=== PATIENT | female | born 1960 | race African-American/Black ===

== ENCOUNTER 2022-05-03 14:37 | Observation (INO) | payer OTHER ==
[2022-05-03 16:42] LABS: BASO % 0.5 % (0-2.0); EOS % 0.6 % (0-4.5); HEMATOCRIT 40.2 % (32.4-45.2); HEMOGLOBIN 13.3 GM/dL (10.7-15.3); LYMPH % 8.8 % (8-40); MCH 27.9 pg (25.7-33.7); MEAN CELL VOLUME 84.4 fl (80-96); MEAN PLT VOLUME 7.3 fl (7.5-11.1); MONO % 4.6 % (3.8-10.2); NEUT % 85.5 % (42.8-82.8); PLATELET COUNT 528 10^3/uL (134-434); RBC 4.76 M/mm3 (3.60-5.2); RDW 14.7 % (11.6-15.6); WHITE BLOOD COUNT 11.8 K/mm3 (4.0-10.0)
[2022-05-03 16:57] LABS: INR 1.03 (0.83-1.09); PROTHROMBIN TIME (PATIENT) 11.9 SEC (9.7-13.0)
[2022-05-03 16:59] LABS: CALCIUM 10.1 mg/dL (8.5-10.1)
[2022-05-03 17:00] LABS: ACTIVATED PTT 31.8 SECONDS (25.2-36.5)
[2022-05-03 17:01] LABS: ALBUMIN 4.1 g/dl (3.4-5.0)
[2022-05-03 17:03] LABS: CREATININE 0.7 mg/dL (0.55-1.3)
[2022-05-03 17:04] LABS: BILIRUBIN,TOTAL 0.9 mg/dL (0.2-1)
[2022-05-03 17:06] LABS: TOT PROT 7.8 g/dl (6.4-8.2)
[2022-05-03] MEDS ORDERED: LACTATED RINGERS SOLUTION 1000 ML INFUS.BAG IV ONE (17:14)
[2022-05-03] MEDS ORDERED: SODIUM CHLORIDE 0.9% 500 ML INFUS.BAG IV ONE (17:14)
[2022-05-03 23:56] VITALS: BMI 20.5
[2022-05-04] MEDS ORDERED: DEXTROSE 5%-LACTATED RINGERS 1,000 ML IV SCH (02:30)
[2022-05-04 06:29] LABS: EPI CELLS 8 /uL (0-25.1); HYALINE CASTS 0 /uL (0-3.1); URINE APPEARANCE CLEAR; URINE BACTERIA 12 /uL (0-1359); URINE BILIRUBIN NEGATIVE (NEGATIVE); URINE COLOR YELLOW; URINE GLUCOSE (UA) NEGATIVE (NEGATIVE); URINE KETONE TRACE (NEGATIVE); URINE LEUK ESTERASE TRACE (NEGATIVE); URINE NITRITE NEGATIVE (NEGATIVE); URINE PROTEIN NEGATIVE (NEGATIVE); URINE RBC 6 /uL (0-23.9); URINE WBC 11 /uL (0-25.8)
[2022-05-04] MEDS ORDERED: ACETAMINOPHEN 1000 MG/100 ML BAG IVPB ONE (06:29)
[2022-05-04 10:12] LABS: EOS % 3.7 % (0-4.5); HEMATOCRIT 34.1 % (32.4-45.2); HEMOGLOBIN 11.6 GM/dL (10.7-15.3); LYMPH % 27.1 % (8-40); MCH 28.6 pg (25.7-33.7); MCHC 34.1 g/dl (32.0-36.0); MEAN CELL VOLUME 84.1 fl (80-96); MEAN PLT VOLUME 7.3 fl (7.5-11.1); MONO % 8.9 % (3.8-10.2); NEUT % 59.3 % (42.8-82.8); PLATELET COUNT 431 10^3/uL (134-434); RBC 4.05 M/mm3 (3.60-5.2); RDW 14.1 % (11.6-15.6); WHITE BLOOD COUNT 6.1 K/mm3 (4.0-10.0)
[2022-05-04 10:17] LABS: INR 1.09 (0.83-1.09); PROTHROMBIN TIME (PATIENT) 12.6 SEC (9.7-13.0)
[2022-05-04 10:35] LABS: CALCIUM 8.6 mg/dL (8.5-10.1)
[2022-05-04 10:37] LABS: BLOOD UREA NITROGEN 9.2 mg/dL (7-18); MAGNESIUM 2.2 mg/dL (1.8-2.4)
[2022-05-04 10:39] LABS: CREATININE 0.7 mg/dL (0.55-1.3); PHOSPHOROUS 3.8 mg/dL (2.5-4.9)
[2022-05-04 10:41] LABS: BILIRUBIN,TOTAL 1.1 mg/dL (0.2-1)
[2022-05-04 10:43] LABS: TOT PROT 5.8 g/dl (6.4-8.2)
[2022-05-04] MEDS: guaiFENesin/CODEINE 5 ML UNIT-DOSE CUPS PO SCH ×2 (12:00→16:03)
[2022-05-04 13:49] VITALS: BP 146/89; PULSE 65; RESP 18; TEMP 97.8
== END 2022-05-04 18:30 | disposition home or self-care (01) ==
LOC: JER 14:37 → JERBED 15:49 → J6S 22:33
PROVIDERS: ADMIT Internal Medicine; ATTEND Internal Medicine
PROC: 3E0337Z Introduction of Electrolytic and Water Balance Substance into Peripheral Vein, Percutaneous Approach (ICD-10-PCS; principal; 2022-05-03)
PROC: 3E033NZ Introduction of Analgesics, Hypnotics, Sedatives into Peripheral Vein, Percutaneous Approach (ICD-10-PCS; 2022-05-03)
DX: K29.70 Gastritis, unspecified, without bleeding (principal); Z29.8 Encounter for other specified prophylactic measures
CPT/HCPCS: 0241U-QW; 36415; 71046-TC-FY; 74019-TC-FY; 80053; 81003; 83605; 83690; 83735; 84100; 85025; 85610; 85730; 87086; 93005; 93010; 99285-25; G0378

== ENCOUNTER 2023-02-18 06:47 | Emergency (ER) | payer OTHER ==
[2023-02-18 07:05] VITALS: BP 125/74; PULSE 63; RESP 20; TEMP 97.8; BMI 20.8
[2023-02-18] MEDS ORDERED: LACTATED RINGERS SOLUTION 1000 ML INFUS.BAG IV ONE (08:14)
[2023-02-18 09:48] LABS: URINE APPEARANCE CLEAR; URINE BILIRUBIN NEGATIVE (NEGATIVE); URINE COLOR YELLOW; URINE GLUCOSE (UA) NEGATIVE (NEGATIVE); URINE KETONE NEGATIVE (NEGATIVE); URINE LEUK ESTERASE NEGATIVE (NEGATIVE); URINE NITRITE NEGATIVE (NEGATIVE); URINE PROTEIN NEGATIVE (NEGATIVE); URINE UROBILINOGEN 0.2 mg/dL (0.2-1.0)
[2023-02-18 09:50] LABS: BASO % 1.8 % (0-2.0); EOS % 0.5 % (0-4.5); HEMATOCRIT 44.2 % (32.4-45.2); HEMOGLOBIN 14.3 GM/dL (10.7-15.3); LYMPH % 44.1 % (8-40); MCH 27.4 pg (25.7-33.7); MCHC 32.4 g/dl (32.0-36.0); MEAN CELL VOLUME 84.6 fl (80-96); MEAN PLT VOLUME 7.5 fl (7.5-11.1); MONO % 7.7 % (3.8-10.2); NEUT % 45.9 % (42.8-82.8); PLATELET COUNT 331 10^3/uL (134-434); RBC 5.22 M/mm3 (3.60-5.2); RDW 13.7 % (11.6-15.6); WHITE BLOOD COUNT 3.5 K/mm3 (4.0-10.0)
[2023-02-18 09:55] LABS: INR 1.01 (0.83-1.09); PROTHROMBIN TIME (PATIENT) 11.7 SEC (9.7-13.0)
[2023-02-18 09:58] LABS: ACTIVATED PTT 36.4 SECONDS (25.2-36.5)
[2023-02-18 10:01] LABS: POTASSIUM 5.5 mmol/L (3.5-5.1)
[2023-02-18 10:04] LABS: CALCIUM 9.3 mg/dL (8.5-10.1)
[2023-02-18 10:07] LABS: CREATININE 0.7 mg/dL (0.55-1.3)
[2023-02-18 10:09] LABS: BILIRUBIN,TOTAL 0.8 mg/dL (0.2-1); TOT PROT 8.2 g/dl (6.4-8.2)
== END 2023-02-18 17:00 | disposition home or self-care (01) ==
LOC: JER 06:47
DX: R10.31 Right lower quadrant pain (principal); Z20.822 Contact with and (suspected) exposure to COVID-19
CPT/HCPCS: 0241U-QW; 36415; 74177-TC; 76830-TC; 80053; 81003; 85025; 85610; 85730; 86850; 86900; 86901; 87086; 93005; 93010; 99285-25; Q9967